=== PATIENT | female | born 1985 | race Caucasian/White ===

== ENCOUNTER 2017-08-26 13:38 | Emergency (ER) | payer OTHER ==
[2017-08-26 13:50] LABS: Glucose,Whole Blood 134 mg/dL (75-99)
[2017-08-26 14:47] LABS: Glucose,Whole Blood 222 mg/dL (75-99)
--- NOTE | 2017-08-26 14:47 | ED ---
Recheck HPI - General Chief Complaint: Recheck/Abnormal Lab/Rx Stated Complaint: Hypoglycemia Time Seen by Provider: 08/26/17 13:49 Source: patient, EMS Mode of arrival: EMS Limitations: no limitations - History of Present Illness Initial Comments: 31-year-old female with past medical history of diabetes with insulin pump presented for evaluation of hyperglycemic episode. She states that she was at [employer] and was meeting with the family when her sugar was low. She was informed by EMS who talked with observers that the patient had started to talk to people that were not there and hallucinating. Upon their arrival she was mild to combative and had a blood sugar of 35. She was given an amp of glucose and had immediately return to baseline. She stated that she felt a little diaphoretic and a little fatigued however no other abnormalities. She states this is happened previously however it is been some time. There is no change in her medications and she has been on this insulin pump since April. - Related Data Home Medications Medication Instructions Recorded Confirmed Insulin Aspart [NovoLOG See Protocol SQ-PUMP CONTINUOUS 08/11/13 08/26/17 (formulary)] Diltiazem HCl [Diltiazem 24Hr ER] 180 mg PO Q24H 01/17/16 08/26/17 Levothyroxine Sodium [Synthroid] 175 mcg PO MOTUWETHFRSA 01/17/16 08/26/17 Atorvastatin [Lipitor] 10 mg PO DAILY 08/26/17 08/26/17 Brimonidine Tartrate [Alphagan P 1 drops RIGHT EYE BID 08/26/17 08/26/17 0.2% Ophth Soln] Dorzolamide 2% [Trusopt 2%] 1 drops RIGHT EYE BID 08/26/17 08/26/17 Levothyroxine Sodium [Synthroid] 87.5 mcg PO PALMA 08/26/17 08/26/17 Timolol 0.5% Ophth Soln [Timoptic 1 drop RIGHT EYE BID 08/26/17 08/26/17 0.5% Ophth Soln] acetaZOLAMIDE [Diamox] 250 mg PO BID 08/26/17 08/26/17 prednisoLONE ACETATE 1% OPHTH 1 drops BOTH EYES Q4HR 08/26/17 08/26/17 [Pred Forte 1%] Allergies Allergy/AdvReac Type Severity Reaction Status Date / Time No Known Allergies Allergy Verified 08/26/17 13:52 Review of Systems ROS Statement: Those systems with pertinent positive or pertinent negative responses have been documented in the HPI. ROS Other: All systems not noted in ROS Statement are negative. Constitutional: Denies: fever, chills Eyes: Denies: eye pain, vision change ENT: Denies: ear pain, throat pain Respiratory: Denies: cough, dyspnea Cardiovascular: Denies: chest pain, palpitations Endocrine: Reports: fatigue ( Gen.). Denies: polydipsia, polyuria Gastrointestinal: Denies: abdominal pain, nausea, vomiting Genitourinary: Denies: urgency, dysuria Musculoskeletal: Denies: back pain, arthralgia, myalgia Skin: Reports: other (Diaphoretic). Denies: rash, lesions Neurological: Denies: headache, weakness Psychiatric: Denies: anxiety, depression Hematological/Lymphatic: Denies: easy bleeding, easy bruising Past Medical History Past Medical History: Diabetes Mellitus, Thyroid Disorder Additional Past Medical History / Comment(s): detached retina, sinus tach History of Any Multi-Drug Resistant Organisms: None Reported Past Surgical History: No Surgical Hx Reported Additional Past Surgical History / Comment(s): eye sx Past Anesthesia/Blood Transfusion Reactions: No Reported Reaction Past Psychological History: No Psychological Hx Reported Smoking Status: Never smoker Past Alcohol Use History: None Reported Past Drug Use History: None Reported - Past Family History Mother Family Medical History: Hypertension (Mother is 48-year-old with history of hypertension) Father Family Medical History: Thyroid Disorder (Father is 50-year-old with history of hypothyroidism.) Brother(s) Family Medical History: No Reported History (Patient has one brother with no major medical problems) Sister(s) Family Medical History: No Reported History (Patient has one sister no major medical problems) General Exam Limitations: no limitations General appearance: alert, in no apparent distress Head exam: Present: atraumatic, normocephalic, normal inspection Eye exam: Present: normal appearance, PERRL, EOMI. Absent: scleral icterus, conjunctival injection, periorbital swelling ENT exam: Present: normal exam, mucous membranes moist Neck exam: Present: normal inspection. Absent: tenderness, meningismus, lymphadenopathy Respiratory exam: Present: normal lung sounds bilaterally. Absent: respiratory distress, wheezes, rales, rhonchi, stridor Cardiovascular Exam: Present: regular rate, normal rhythm, normal heart sounds. Absent: systolic murmur, diastolic murmur, rubs, gallop, clicks Skin exam: Present: warm, intact, diaphoretic Course Vital Signs 08/26/17 08/26/17 13:39 14:55 Temperature 97.4 F L 97.0 F L Pulse Rate 87 92 Respiratory 16 15 Rate Blood Pressure 118/62 114/67 O2 Sat by Pulse 98 100 Oximetry Medical Decision Making - Medical Decision Making 31-year-old male presenting for evaluation of hypoglycemic episode. EMS found her with a blood glucose of 35 and gave her an amp of D50 with immediate improvement in her mental status. Upon arrival to the ED her blood glucose remained at an appropriate level. She was mildly diaphoretic however no other abnormalities. Unable to identify a an underlying etiology for her hyperglycemia and she was given a by mouth challenge which she tolerated. Glucose was checked again and she remained stable. We'll discharge with instructions to follow-up with primary care physician and collar cutter. Given return instructions. The patient acknowledged an understanding of all information provided and agreed with this plan of care. - Lab Data Lab Results 08/26/17 08/26/17 Range/Units 13:46 14:41 POC Glucose (mg/dL) 134 H 222 H (75-99) mg/dL POC Glu Pit Steward ID Jess Ortiz Jalissa Disposition Clinical Impression: Hypoglycemia Disposition: HOME SELF-CARE Condition: Stable Instructions: Hypoglycemia in a Person with Diabetes (ED) Is patient prescribed a controlled substance at d/c from ED?: No Referrals: Kendra Ennis MD [Primary Care Provider] - 1-2 days Time of Disposition: 14:47
[2017-08-26 14:56] VITALS: BP 114/67; PULSE 92; RESP 15; TEMP 97
== END 2017-08-26 15:03 | disposition home or self-care (01) ==
LOC: EC 13:38
DX: E11.649 Type 2 diabetes mellitus with hypoglycemia without coma (principal); E07.9 Disorder of thyroid, unspecified; Z79.84 Long term (current) use of oral hypoglycemic drugs; Z79.52 Long term (current) use of systemic steroids; Z79.899 Other long term (current) drug therapy
CPT/HCPCS: 36415; 99285

== ENCOUNTER 2017-11-19 18:39 | Emergency (ER) | payer OTHER ==
[2017-11-19 18:50] VITALS: BP 113/73; PULSE 118; RESP 20; TEMP 98.7
[2017-11-19] MEDS ORDERED: HYDROcodone/APAP 7.5-325MG 1 EACH TAB PO ONE (19:03)
[2017-11-19] MEDS ORDERED: ONDANSETRON ODT 4 MG TAB PO STA (19:03)
--- NOTE | 2017-11-19 19:29 | ED ---
Lower Extremity Injury HPI - General Chief Complaint: Extremity Injury, Lower Stated Complaint: Ankle injury Time Seen by Provider: 11/19/17 18:57 Source: patient, RN notes reviewed Mode of arrival: ambulatory Limitations: no limitations - History of Present Illness Initial Comments: This is a 31yo female with pmh of type I diabetes sinus tachycardia, previous b/ l retinal detachment and previous left ankle fracture who presents today for CC of left ankle pain and swelling following fall. Pt states that at around 6:30pm while going down the stairs on the stage at [facility]. She usually counts the number of stairs when ambulating because she cannot see in dim lit areas since her b/lr etinal detachments. She miscounted missing the last step, coming down side ways on her left ankle, she stated she felt a pop, but did not dislocated her ankle. She denied falling hitting her head, LOC or injury to any other extremity. Pt immediately noticed swelling of the left lateral ankle and pain with ambulation. Patient described the pain as an 8 out of 10 sharp pain that radiates to the toward the proximal left ankle. Patient denied numbness, tingling, coolness or pallor of extremity, loss of sensation, muscle weakness or paresthesias. They applied ice to the ankle and brought her to the ER. remainder ROS (-). - Related Data Home Medications Medication Instructions Recorded Confirmed Insulin Aspart [NovoLOG See Protocol SQ-PUMP CONTINUOUS 08/11/13 08/26/17 (formulary)] Diltiazem HCl [Diltiazem 24Hr ER] 180 mg PO Q24H 01/17/16 08/26/17 Levothyroxine Sodium [Synthroid] 175 mcg PO MOTUWETHFRSA 01/17/16 08/26/17 Atorvastatin [Lipitor] 10 mg PO DAILY 08/26/17 08/26/17 Brimonidine Tartrate [Alphagan P 1 drops RIGHT EYE BID 08/26/17 08/26/17 0.2% Ophth Soln] Dorzolamide 2% [Trusopt 2%] 1 drops RIGHT EYE BID 08/26/17 08/26/17 Levothyroxine Sodium [Synthroid] 87.5 mcg PO PALMA 08/26/17 08/26/17 Timolol 0.5% Ophth Soln [Timoptic 1 drop RIGHT EYE BID 08/26/17 08/26/17 0.5% Ophth Soln] acetaZOLAMIDE [Diamox] 250 mg PO BID 08/26/17 08/26/17 prednisoLONE ACETATE 1% OPHTH 1 drops BOTH EYES Q4HR 08/26/17 08/26/17 [Pred Forte 1%] Previous Rx's Medication Instructions Recorded Ibuprofen [Motrin] 800 mg PO Q6H PRN 7 Days #28 tab 11/19/17 Allergies Allergy/AdvReac Type Severity Reaction Status Date / Time No Known Allergies Allergy Verified 11/19/17 18:50 Review of Systems ROS Statement: Those systems with pertinent positive or pertinent negative responses have been documented in the HPI. ROS Other: All systems not noted in ROS Statement are negative. Constitutional: Denies: fever, chills ENT: Denies: ear pain, throat pain Respiratory: Denies: cough, dyspnea Cardiovascular: Denies: chest pain, palpitations, dyspnea on exertion Gastrointestinal: Denies: abdominal pain, nausea, vomiting, diarrhea, constipation Genitourinary: Denies: urgency, dysuria Musculoskeletal: Reports: joint swelling, arthralgia Skin: Denies: rash, lesions Neurological: Denies: headache, weakness, numbness, paresthesias, confusion, abnormal gait Past Medical History Past Medical History: Diabetes Mellitus, Thyroid Disorder Additional Past Medical History / Comment(s): detached retina, sinus tach History of Any Multi-Drug Resistant Organisms: None Reported Past Surgical History: No Surgical Hx Reported Additional Past Surgical History / Comment(s): eye sx Past Anesthesia/Blood Transfusion Reactions: No Reported Reaction Past Psychological History: No Psychological Hx Reported Smoking Status: Never smoker Past Alcohol Use History: None Reported Past Drug Use History: None Reported - Past Family History Mother Family Medical History: Hypertension (Mother is 48-year-old with history of hypertension) Father Family Medical History: Thyroid Disorder (Father is 50-year-old with history of hypothyroidism.) Brother(s) Family Medical History: No Reported History (Patient has one brother with no major medical problems) Sister(s) Family Medical History: No Reported History (Patient has one sister no major medical problems) General Exam - General Exam Comments Initial Comments: General: The patient is awake and alert, in no distress, and does not appear acutely ill. Eye: Pupils are equal, extra-ocular movements are intact. No nystagmus. There is normal conjunctiva bilaterally. No signs of icterus. Cardiovascular: There is a regular rate and rhythm. No murmur, rub or gallop is appreciated. Respiratory: Lungs are clear to auscultation, respirations are non-labored, breath sounds are equal. No wheezes, stridor, rales, or rhonchi. Musculoskeletal: Significant soft tissue swelling and mild ecchymosis along lateral aspect of left ankle. Pt is able to dorsiflex, plantar, invert, and edelmira at the ankle joints b/l however she complains with all movement of the right ankle especially with inversion. Strength 5/5 with all movement, no evidence of laxity or crepitus. Pain to palpation over the lateral malleolus, no pain over the medial malleolus or the proximal tibia and fibula. Sensation intact of the LE equally b/l. DP and posterior tibial pulses equal bilaterally 2 +. Capillary refill <2 seconds. (-) anterior and posterior drawer testing of ankle. No tenderness to compression of the tibia and fibula. Compartments are soft and compressible. Neurological: A&O x 3. CN II-XII intact, There are no obvious motor or sensory deficits. Coordination appears grossly intact. Speech is normal. Skin: Skin is warm and dry and no rashes or lesions are noted. Psychiatric: Cooperative, appropriate mood & affect, normal judgment. Limitations: no limitations Course Vital Signs 11/19/17 18:48 Temperature 98.7 F Pulse Rate 118 H Respiratory 20 Rate Blood Pressure 113/73 O2 Sat by Pulse 100 Oximetry Medical Decision Making - Medical Decision Making XR left misael obtained revealing no acute fracture or dislocation. Pt given norco and zofran prior to XR for pain mgmt. Ice applied to ankle. Neurovascular exam intact, compartment compressible. Swelling concerning for ATFL injury. Case discussed with Dr. Pathak in detail. At this time we feel pt has a moderate ankle sprain with possible ATFL injury. Pt placed in MIRTHA bandage with stirrup air boot. Given RX for crutches and instructed to follow [facility] instructions and f /u with orthopedic surgery in 1-2days, pt knows she is to call and make appointment. Pt agreed and verbalized she understood. Pt given RX for ibuprofen for pain as needed. Pt agreed with plan discharged in stable condition. Disposition Clinical Impression: Moderate left ankle sprain Disposition: HOME SELF-CARE Condition: Good Instructions: Ankle Sprain (ED) Additional Instructions: Please use over the counter pain medication as discussed. Please follow-up with orthopedic surgery in the next 2-3 days. Please return to emergency room if the symptoms increase or worsen or for any other concerns, as discussed. Prescriptions: Ibuprofen [Motrin] 800 mg PO Q6H PRN 7 Days #28 tab PRN Reason: Pain Is patient prescribed a controlled substance at d/c from ED?: No Referrals: Kendra Ennis MD [Primary Care Provider] - 1-2 days Prosper Mendoza PAC [PHYSICIAN FLUE [employer]OWER] - 1-2 days Time of Disposition: 20:02
--- NOTE | 2017-11-19 19:45 | XR ---
EXAMINATION TYPE: XR ankle complete LT DATE OF EXAM: 11/19/2017 COMPARISON: NONE HISTORY: Ankle pain TECHNIQUE: 3 views FINDINGS: Ankle mortise is anatomic. There is soft tissue swelling over the lateral malleolus. Joint spaces are normal. IMPRESSION: Soft tissue swelling. No fracture seen.
== END 2017-11-19 20:42 | disposition home or self-care (01) ==
LOC: EC 18:39
DX: S93.402A Sprain of unspecified ligament of left ankle, initial encounter (principal); E11.9 Type 2 diabetes mellitus without complications; E07.9 Disorder of thyroid, unspecified; Z87.81 Personal history of (healed) traumatic fracture; Z79.4 Long term (current) use of insulin; Z79.899 Other long term (current) drug therapy; W10.9XXA Fall (on) (from) unspecified stairs and steps, initial encounter
CPT/HCPCS: 99283; 29515; 73610; L4350

== ENCOUNTER → 2017-11-23 | Outpatient (CLI) | payer OTHER ==
--- NOTE | 2017-11-23 14:57 | US ---
EXAMINATION TYPE: US venous doppler duplex LE LT DATE OF EXAM: 11/23/2017 12:23 PM COMPARISON: NONE CLINICAL HISTORY: 31-year-old female M25.572 PAIN IN LEFT ANKLE/M79.662 PAIN LOWER LFT. SIDE PERFORMED: LEFT TECHNIQUE: The lower extremity deep venous system is examined utilizing real time linear array sonog victorino with graded compression, doppler sonography and color-flow sonography. FINDINGS: VESSELS IMAGED: External Iliac Vein (EIV) Common Femoral Vein Deep Femoral Vein Greater Saphenous Vein * Femoral Vein Popliteal Vein Small Saphenous Vein * Proximal Calf Veins (* superficial vessels) Left Leg: Negative for DVT IMPRESSION: No evidence for DVT within the left lower extremity imaged from the groin to the knee.
== END | disposition home or self-care (01) ==
LOC: RADUSWWP 11:46
PROVIDERS: ATTEND Orthopaedic Surgery
DX: S93.402A Sprain of unspecified ligament of left ankle, initial encounter (principal); I82.401 Acute embolism and thrombosis of unspecified deep veins of right lower extremity; M25.572 Pain in left ankle and joints of left foot

== ENCOUNTER 2018-03-25 12:40 | Emergency (ER) | payer OTHER ==
[2018-03-25] MEDS ORDERED: SODIUM CHLORIDE 0.9% 1,000 ML IV STA (13:12)
[2018-03-25 13:49] LABS: Basophils % (A) 1 %; Eosinophils # (A) 0.3 k/uL (0-0.7); Eosinophils % (A) 5 %; HCT 40.6 % (34.0-46.0); HGB 12.7 gm/dL (11.4-16.0); Hypochromasia Moderate; Lymphocytes # (A) 1.8 k/uL (1.0-4.8); Lymphocytes % (A) 28 %; MCH 25.4 pg (25.0-35.0); MCHC 31.2 g/dL (31.0-37.0); MCV 81.5 fL (80.0-100.0); Mean Platelet Volume 7.5; Monocytes # (A) 0.3 k/uL (0-1.0); Monocytes % (A) 5 %; Neutrophils # (A) 3.8 k/uL (1.3-7.7); Neutrophils % (A) 59 %; Platelet Count 299 k/uL (150-450); RBC 4.98 m/uL (3.80-5.40); RDW 14.6 % (11.5-15.5); WBC 6.5 k/uL (3.8-10.6)
--- NOTE | 2018-03-25 13:52 | ED ---
Arrhythmia/Palpitations HPI - General Chief Complaint: Arrhythmia/Palpitations Stated Complaint: palpitations Time Seen by Provider: 03/25/18 13:01 Source: patient Mode of arrival: ambulatory Limitations: no limitations - History of Present Illness Initial Comments: 32-year-old female patient presents to the emergency department today for evaluation of elevated heart rate. Patient states that over the last couple of days she has felt that her heart has been racing. Patient did get if it bit for [place] and has noted that her blood pressure is at rest between 110 and 120. Patient states she does feel and overall chest tightness and anxious feeling. Patient states she has been short of breath with this. She denies any fevers or chills. She does have history of type 1 diabetes mellitus, sinus tachycardia, and hyperlipidemia. Patient states her sugars have been running high. Patient was recently treated for acute bronchitis, she still coughing but states her symptoms are much improved. She denies any abdominal pain, nausea, or vomiting. Denies any constipation or diarrhea. Denies any leg pain or swelling. She did start new vitamin C and Biotin supplements but did stop taking them over the last 2 days in case this was related to her symptoms. She denies any other new medications or supplements. Patient denies any recent rash , back pain, numbness, tingling, dizziness, weakness, hematuria, dysuria, urinary urgency, urinary frequency, headache, visual changes, or any other complaints. - Related Data Home Medications Medication Instructions Recorded Confirmed Insulin Aspart [NovoLOG See Protocol SQ-PUMP CONTINUOUS 08/11/13 03/25/18 (formulary)] Diltiazem HCl [Diltiazem 24Hr ER] 180 mg PO HS 01/17/16 03/25/18 Levothyroxine Sodium [Synthroid] 175 mcg PO DAILY 01/17/16 03/25/18 Atorvastatin [Lipitor] 10 mg PO HS 08/26/17 03/25/18 Brimonidine Tartrate [Alphagan P 1 drops RIGHT EYE BID 08/26/17 03/25/18 0.2% Ophth Soln] Dorzolamide 2% [Trusopt 2%] 1 drops RIGHT EYE BID 08/26/17 03/25/18 Timolol 0.5% Ophth Soln [Timoptic 1 drop RIGHT EYE DAILY 08/26/17 03/25/18 0.5% Ophth Soln] acetaZOLAMIDE [Diamox] 250 mg PO HS 08/26/17 03/25/18 prednisoLONE ACETATE 1% OPHTH 1 drops BOTH EYES DAILY 08/26/17 03/25/18 [Pred Forte 1%] Ascorbic Acid [Vitamin C] 500 mg PO BID 03/25/18 03/25/18 Biotin 5 mg PO DAILY 03/25/18 03/25/18 Cholecalciferol [Vitamin D3] 1,000 unit PO HS 03/25/18 03/25/18 Allergies Allergy/AdvReac Type Severity Reaction Status Date / Time No Known Allergies Allergy Verified 03/25/18 13:02 Review of Systems ROS Statement: Those systems with pertinent positive or pertinent negative responses have been documented in the HPI. ROS Other: All systems not noted in ROS Statement are negative. Past Medical History Past Medical History: Chest Pain / Angina, Diabetes Mellitus, Thyroid Disorder Additional Past Medical History / Comment(s): detached retina, sinus tach History of Any Multi-Drug Resistant Organisms: None Reported Past Surgical History: No Surgical Hx Reported Additional Past Surgical History / Comment(s): eye sx Past Anesthesia/Blood Transfusion Reactions: No Reported Reaction Past Psychological History: No Psychological Hx Reported Smoking Status: Never smoker Past Alcohol Use History: None Reported Past Drug Use History: None Reported - Past Family History Mother Family Medical History: Hypertension (Mother is 48-year-old with history of hypertension) Father Family Medical History: Thyroid Disorder (Father is 50-year-old with history of hypothyroidism.) Brother(s) Family Medical History: No Reported History (Patient has one brother with no major medical problems) Sister(s) Family Medical History: No Reported History (Patient has one sister no major medical problems) General Exam Limitations: no limitations General appearance: alert, in no apparent distress, other (Physical well- developed, well-nourished adult female patient in no acute distress. Vital signs upon presentation are temperature 98.0F, pulse 122, respirations 20, blood pressure 116/56, pulse ox 98% on room air.) Eye exam: Present: normal appearance, PERRL, EOMI. Absent: scleral icterus, conjunctival injection, periorbital swelling ENT exam: Present: normal exam, normal oropharynx, mucous membranes moist Respiratory exam: Present: normal lung sounds bilaterally. Absent: respiratory distress, wheezes, rales, rhonchi, stridor Cardiovascular Exam: Present: normal rhythm, tachycardia, normal heart sounds. Absent: systolic murmur, diastolic murmur, rubs, gallop, clicks GI/Abdominal exam: Present: soft, normal bowel sounds. Absent: distended, tenderness, guarding, rebound, rigid Neurological exam: Present: alert, oriented X3, CN II-XII intact Psychiatric exam: Present: normal affect, normal mood Skin exam: Present: warm, dry, intact, normal color. 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 No evidence of ST elevation or depression. No ectopy. Medical Decision Making - Medical Decision Making 32-year-old female patient presents to the emergency department today for complaints of tachycardia palpitations. Physical examination is unremarkable. Heart sounds are normal and regular. EKG showed normal sinus rhythm with a rate of 94. Patient did have a mild elevation in her rate upon arrival and throughout visit. Patient denies any chest pain. She has had a cough. Chest x -ray showed no acute cardio pulmonary process. Labs reviewed and did reveal elevated glucose, patient is a type I diabetic, she is mildly acidotic, she was given IV fluids here. TSH is 0.140 which is low, free T4 however is 1.3 so she appears to be well compensated. We will instructed to increase fluids. She is instructed to follow-up with her primary care physician to discuss possible dose change and her Cardizem for history of sinus tachycardia. Return parameters were discussed in detail. She verbalizes understanding and agrees with this plan. - Lab Data Result diagrams: 03/25/18 13:32 03/25/18 13:32 Lab Results 03/25/18 03/25/18 03/25/18 Range/Units 13:18 13:18 13:32 WBC (3.8-10.6) k/uL RBC (3.80-5.40) m/uL Hgb (11.4-16.0) gm/dL Hct (34.0-46.0) % MCV (80.0-100.0) fL MCH (25.0-35.0) pg MCHC (31.0-37.0) g/dL RDW (11.5-15.5) % Plt Count (150-450) k/uL Neutrophils % % Lymphocytes % % Monocytes % % Eosinophils % % Basophils % % Neutrophils # (1.3-7.7) k/uL Lymphocytes # (1.0-4.8) k/uL Monocytes # (0-1.0) k/uL Eosinophils # (0-0.7) k/uL Basophils # (0-0.2) k/uL Hypochromasia PT (9.0-12.0) sec INR (<1.2) APTT (22.0-30.0) sec D-Dimer (<0.60) mg/L FEU Sodium (137-145) mmol/L Potassium (3.5-5.1) mmol/L Chloride (98-107) mmol/L Carbon Dioxide (22-30) mmol/L Anion Gap mmol/L BUN (7-17) mg/dL Creatinine (0.52-1.04) mg/dL Est GFR (CKD-EPI)AfAm (>60 ml/min/1.73 sqM) Est GFR (CKD-EPI)NonAf (>60 ml/min/1.73 sqM) Glucose (74-99) mg/dL Calcium (8.4-10.2) mg/dL Magnesium (1.6-2.3) mg/dL Total Bilirubin (0.2-1.3) mg/dL AST (14-36) U/L ALT (9-52) U/L Alkaline Phosphatase (38-126) U/L Total Creatine Kinase 30 (30-135) U/L CK-MB (CK-2) <0.2 (0.0-2.4) ng/mL CK-MB (CK-2) Rel Index Troponin I <0.012 (0.000-0.034) ng/mL Total Protein (6.3-8.2) g/dL Albumin (3.5-5.0) g/dL TSH (0.465-4.680) mIU/L Free T4 (0.78-2.19) ng/dL Urine Color Yellow Urine Appearance Cloudy H (Clear) Urine pH 6.5 (5.0-8.0) Ur Specific [place] 1.034 (1.001-1.035) Urine Protein Trace H (Negative) Urine Glucose (UA) 4+ H (Negative) Urine Ketones Negative (Negative) Urine Blood Negative (Negative) Urine Nitrite Negative (Negative) Urine Bilirubin Negative (Negative) Urine Urobilinogen <2.0 (<2.0) mg/dL Ur Leukocyte Esterase Large H (Negative) Urine WBC 4 (0-5) /hpf Ur Squamous Epith Cells 10 H (0-4) /hpf Urine Mucus Rare H (None) /hpf Urine HCG, Qual Not Detected (Not Detectd) 03/25/18 03/25/18 03/25/18 Range/Units 13:32 13:32 13:32 WBC 6.5 (3.8-10.6) k/uL RBC 4.98 (3.80-5.40) m/uL Hgb 12.7 (11.4-16.0) gm/dL Hct 40.6 (34.0-46.0) % MCV 81.5 (80.0-100.0) fL MCH 25.4 (25.0-35.0) pg MCHC 31.2 (31.0-37.0) g/dL RDW 14.6 (11.5-15.5) % Plt Count 299 (150-450) k/uL Neutrophils % 59 % Lymphocytes % 28 % Monocytes % 5 % Eosinophils % 5 % Basophils % 1 % Neutrophils # 3.8 (1.3-7.7) k/uL Lymphocytes # 1.8 (1.0-4.8) k/uL Monocytes # 0.3 (0-1.0) k/uL Eosinophils # 0.3 (0-0.7) k/uL Basophils # 0.0 (0-0.2) k/uL Hypochromasia Moderate PT 9.9 (9.0-12.0) sec INR 0.9 (<1.2) APTT 25.9 (22.0-30.0) sec D-Dimer 0.26 (<0.60) mg/L FEU Sodium 141 (137-145) mmol/L Potassium 3.8 (3.5-5.1) mmol/L Chloride 111 H (98-107) mmol/L Carbon Dioxide 19 L (22-30) mmol/L Anion Gap 11 mmol/L BUN 13 (7-17) mg/dL Creatinine 0.70 (0.52-1.04) mg/dL Est GFR (CKD-EPI)AfAm >90 (>60 ml/min/1.73 sqM) Est GFR (CKD-EPI)NonAf >90 (>60 ml/min/1.73 sqM) Glucose 232 H (74-99) mg/dL Calcium 9.0 (8.4-10.2) mg/dL Magnesium 1.7 (1.6-2.3) mg/dL Total Bilirubin 0.3 (0.2-1.3) mg/dL AST 12 L (14-36) U/L ALT 19 (9-52) U/L Alkaline Phosphatase 78 (38-126) U/L Total Creatine Kinase (30-135) U/L CK-MB (CK-2) (0.0-2.4) ng/mL CK-MB (CK-2) Rel Index Troponin I (0.000-0.034) ng/mL Total Protein 7.0 (6.3-8.2) g/dL Albumin 3.9 (3.5-5.0) g/dL TSH (0.465-4.680) mIU/L Free T4 (0.78-2.19) ng/dL Urine Color Urine Appearance (Clear) Urine pH (5.0-8.0) Ur Specific [place] (1.001-1.035) Urine Protein (Negative) Urine Glucose (UA) (Negative) Urine Ketones (Negative) Urine Blood (Negative) Urine Nitrite (Negative) Urine Bilirubin (Negative) Urine Urobilinogen (<2.0) mg/dL Ur Leukocyte Esterase (Negative) Urine WBC (0-5) /hpf Ur Squamous Epith Cells (0-4) /hpf Urine Mucus (None) /hpf Urine HCG, Qual (Not Detectd) 03/25/18 Range/Units 13:32 WBC (3.8-10.6) k/uL RBC (3.80-5.40) m/uL Hgb (11.4-16.0) gm/dL Hct (34.0-46.0) % MCV (80.0-100.0) fL MCH (25.0-35.0) pg MCHC (31.0-37.0) g/dL RDW (11.5-15.5) % Plt Count (150-450) k/uL Neutrophils % % Lymphocytes % % Monocytes % % Eosinophils % % Basophils % % Neutrophils # (1.3-7.7) k/uL Lymphocytes # (1.0-4.8) k/uL Monocytes # (0-1.0) k/uL Eosinophils # (0-0.7) k/uL Basophils # (0-0.2) k/uL Hypochromasia PT (9.0-12.0) sec INR (<1.2) APTT (22.0-30.0) sec D-Dimer (<0.60) mg/L FEU Sodium (137-145) mmol/L Potassium (3.5-5.1) mmol/L Chloride (98-107) mmol/L Carbon Dioxide (22-30) mmol/L Anion Gap mmol/L BUN (7-17) mg/dL Creatinine (0.52-1.04) mg/dL Est GFR (CKD-EPI)AfAm (>60 ml/min/1.73 sqM) Est GFR (CKD-EPI)NonAf (>60 ml/min/1.73 sqM) Glucose (74-99) mg/dL Calcium (8.4-10.2) mg/dL Magnesium (1.6-2.3) mg/dL Total Bilirubin (0.2-1.3) mg/dL AST (14-36) U/L ALT (9-52) U/L Alkaline Phosphatase (38-126) U/L Total Creatine Kinase (30-135) U/L CK-MB (CK-2) (0.0-2.4) ng/mL CK-MB (CK-2) Rel Index Troponin I (0.000-0.034) ng/mL Total Protein (6.3-8.2) g/dL Albumin (3.5-5.0) g/dL TSH 0.140 L (0.465-4.680) mIU/L Free T4 1.38 (0.78-2.19) ng/dL Urine Color Urine Appearance (Clear) Urine pH (5.0-8.0) Ur Specific [place] (1.001-1.035) Urine Protein (Negative) Urine Glucose (UA) (Negative) Urine Ketones (Negative) Urine Blood (Negative) Urine Nitrite (Negative) Urine Bilirubin (Negative) Urine Urobilinogen (<2.0) mg/dL Ur Leukocyte Esterase (Negative) Urine WBC (0-5) /hpf Ur Squamous Epith Cells (0-4) /hpf Urine Mucus (None) /hpf Urine HCG, Qual (Not Detectd) - Radiology Data Radiology results: report reviewed, image reviewed Two-view x-ray of the chest is obtained. Report was reviewed in its entirety. Impression by Dr. Rothman shows no acute pulmonary process. Disposition Clinical Impression: Tachycardia, Palpitations Disposition: HOME SELF-CARE Condition: Good Instructions: Heart Palpitations (ED), Tachycardia (ED) Additional Instructions: Increase fluids. Monitor blood sugars closely. Follow up with primary care physician for recheck in 1-2 days. Return immediately for any new, worsening, or concerning symptoms Is patient prescribed a controlled substance at d/c from ED?: No Referrals: Kendra Ennis MD [Primary Care Provider] - 1-2 days Time of Disposition: 16:08
[2018-03-25 14:00] LABS: ALT 19 U/L (9-52); AST 12 U/L (14-36); Albumin 3.9 g/dL (3.5-5.0); Alkaline Phosphatase 78 U/L (38-126); Anion Gap 11 mmol/L; Blood Urea Nitrogen 13 mg/dL (7-17); Carbon Dioxide 19 mmol/L (22-30); Chloride 111 mmol/L (98-107); Glucose 232 mg/dL (74-99); Magnesium 1.7 mg/dL (1.6-2.3); Potassium 3.8 mmol/L (3.5-5.1); Sodium 141 mmol/L (137-145); Total Bilirubin 0.3 mg/dL (0.2-1.3)
[2018-03-25 14:02] LABS: Appearance,Urine Cloudy (Clear); Bilirubin,Urine Negative (Negative); Blood,Urine Negative (Negative); Color,Urine Yellow; Glucose,Urine (UA) 4+ (Negative); Ketones,Urine Negative (Negative); Leukocyte Esterase,Urine Large (Negative); Mucus,Urine Rare /hpf; Nitrite,Urine Negative (Negative); PH, Urine 6.5 (5.0-8.0); Protein,Urine Trace (Negative); Specific Gravity,Urine 1.034 (1.001-1.035); Squamous Epithelial Cell,Urine 10 /hpf (0-4); Urobilinogen,Urine <2.0 mg/dL (<2.0); WBC,Urine 4 /hpf (0-5)
--- NOTE | 2018-03-25 14:03 | XR ---
EXAMINATION TYPE: XR chest 2V DATE OF EXAM: 03/25/2018 COMPARISON: 11/10/2015 INDICATION: Dysrhythmia TECHNIQUE: Frontal and lateral views of the chest are obtained. FINDINGS: The heart size is normal. The pulmonary vasculature is normal. The lungs are clear. IMPRESSION: 1. No acute pulmonary process.
[2018-03-25 14:05] LABS: D-Dimer 0.26 mg/L FEU (<0.60); INR 0.9 (<1.2); Partial Thromboplastin Time 25.9 sec (22.0-30.0); Prothrombin Time 9.9 sec (9.0-12.0)
[2018-03-25 14:15] LABS: Creatine Kinase 30 U/L (30-135)
[2018-03-25 14:27] LABS: Creatine Kinase MB <0.2 ng/mL (0.0-2.4); Troponin I <0.012 ng/mL (0.000-0.034)
[2018-03-25 14:50] VITALS: RESP 16
[2018-03-25 16:03] LABS: T4, Free (Free Thyroxine) 1.38 ng/dL (0.78-2.19)
[2018-03-25 16:23] VITALS: BP 113/74; PULSE 99; TEMP 97.8
== END 2018-03-25 16:28 | disposition home or self-care (01) ==
LOC: EC 12:40
DX: R00.2 Palpitations (principal); R00.0 Tachycardia, unspecified; R05 Cough; E10.10 Type 1 diabetes mellitus with ketoacidosis without coma; R94.6 Abnormal results of thyroid function studies; R07.89 Other chest pain; R06.02 Shortness of breath; E78.5 Hyperlipidemia, unspecified; E07.9 Disorder of thyroid, unspecified; Z79.4 Long term (current) use of insulin; Z79.52 Long term (current) use of systemic steroids; Z79.899 Other long term (current) drug therapy; Z86.69 Personal history of other diseases of the nervous system and sense organs; Z96.41 Presence of insulin pump (external) (internal); Z82.49 Family history of ischemic heart disease and other diseases of the circulatory system; Z83.49 Family history of other endocrine, nutritional and metabolic diseases
CPT/HCPCS: 36415; 71046; 80053; 81001; 81025; 82550; 82553; 83735; 84439; 84443; 84484; 85025; 85379; 85610; 85730; 93005; 96360; 96361; 99285